=== PATIENT | female | born 1950 | race Two or more races ===

== ENCOUNTER 2018-02-18 10:36 | Emergency (ER) | payer OTHER ==
[~2018-02-18] VITALS: Ht 162.6 cm; Wt 61.7 kg
[~2018-02-18 10:36] MED LIST: CLONAZEPAM2 MG PO; SYNTHROID88 MCG PO; XALATAN
== END 2018-02-18 21:39 | disposition home or self-care (01) ==
LOC: ER 10:36
DX: K57.90 Diverticulosis of intestine, part unspecified, without perforation or abscess without bleeding (principal)

== ENCOUNTER 2018-03-29 13:28 | Inpatient (IN) | payer OTHER ==
[~2018-03-29] VITALS: Ht 162.6 cm; Wt 59.4 kg
== END 2018-03-31 12:01 | disposition home or self-care (01) | DRG 376 ==
LOC: ER 13:28 → SURH 18:59
PROC: 0DBN8ZX Excision of Sigmoid Colon, Via Natural or Artificial Opening Endoscopic, Diagnostic (ICD-10-PCS; principal; 2018-03-29)
PROC: 3E0H8KZ Introduction of Other Diagnostic Substance into Lower GI, Via Natural or Artificial Opening Endoscopic (ICD-10-PCS; 2018-03-29)
DX: C18.7 Malignant neoplasm of sigmoid colon (principal); K43.2 Incisional hernia without obstruction or gangrene; E03.8 Other specified hypothyroidism; H40.89 Other specified glaucoma